=== PATIENT | female | born 1975 | race Caucasian/White ===

== ENCOUNTER → 2016-09-25 | Outpatient (CLI) | payer OTHER ==
[~2016-09-25] MED LIST: AMITRIPTYLINE H50 MG PO; AUGMENTIN 875/125MG PO; AURALGAN; BACTRIM DS TABL1 TA1 PO; BENADRYL25 M1 PO; BENZONATATE PO; CELEXA20 MG PO; CHANTIX1 DOSE-PAC PO; CIPRO PO; CIPRO250 MG PO; CYMBALTA PO; DICLOFENAC PO; DULOXETINE HCL60 MG PO; FLEXERIL10 M1 PO; KEFLEX500 MG PO; LISINOPRIL PO; LYRICA100 MG PO; LYRICA200 MG PO; NO MEDICATIONS; NORCO 10-325 TA1 TAB PO; NORCO PO; NORCO1 TAB 10/3 PO; PHENERGAN25 MG PO; PHENTERMINE H37.5 M1 PO; PRINIVIL10 MG PO; PYRIDIUM100 MG PO; ROBAXIN500 MG PO; SULFAMETHOXAZO1 EAC1 PO; TESSALON PERLE100 M1 PO; ULTRAM PO; VOLTAREN50 MG PO; VOLTAREN75 MG PO; ZITHROMAX PO; ZOFRAN ODT4 MG SL; [UNRECOGNIZED DRUG - OTHER]
--- NOTE | ~2016-09-25 | MY11 ---
[facility] A Service of [facility] RADIOLOGY TEXT RESULTS PATIENT: ESTHELA WEI LOCATION: [facility] : 71 UNIT #: [id number] AGE: [address]: GIOVANNI MA APRN SEX: F ORDER DR: [id number] [facility]. [place], [place] [address] [id number] O MR#: [id number] #: [id number] NAME: ESTHELA WEI : 1975 SEX: F STUDY DATE/TIME: 09/25/2016 12:05 UNIT: [facility] ROOM: STUDY DESCRIPTION: MY Mammogram Screening Dig [place] Attending Physician: Paulette Marquez Ordering Physician: Physician Non-Staff Primary Care Physician: Paulette Marquez MEDICAL IMAGING REPORT This report is preliminary unless electronic signature is present EXAM Digital screening mammogram, 09/25/2016. HISTORY A 41-year-old woman, unknown family history. Annual screening. COMPARISON STUDIES Outside mammogram available dated 07/02/2015 [facility] FINDINGS Digital imaging of each breast was completed utilizing a two-view examination of each breast in craniocaudal and mediolateral-oblique projections. Review and interpretation of digital mammograms include a second review in conjunction with FDA-approved CAD device. There is a normal parenchymal presentation bilaterally consistent with the patient's age. There are no breast masses imaged and no parenchymal asymmetry is visualized. There are no suspicious microcalcifications and I see no focal architectural disturbance. IMPRESSION Negative screening digital mammogram. One-year followup recommended. Patients over the age of 40 are entered into a reminder system with target due date for the next mammogram. A result letter will also be sent to the patient. BIRADS: 1 Negative ADDENDUM Breast parenchyma is fatty replaced [facility] A Service of [facility] RADIOLOGY TEXT RESULTS PATIENT: ESTHELA WEI LOCATION: [facility] : 71 UNIT #: [id number] AGE: [address]: GIOVANNI MA APRN SEX: F ORDER DR: Dictated by... Juancarlos Matta M.D. THIS IS AN ELECTRONICALLY VERIFIED REPORT Juancarlos Matta M.D. at 09/26/2016 8:01 AM PRESTON/[email or web address] TD: 09/25/2016 17:24 JOB #: [id number] MEDICAL IMAGING REPORT Page 1 of 1 COPY
== END | disposition home or self-care (01) ==
LOC: CWCC 11:40
DX: Z12.31 Encounter for screening mammogram for malignant neoplasm of breast (principal)
CPT/HCPCS: G0202